=== PATIENT | male | born 1995 | race Caucasian/White ===

== ENCOUNTER 2020-12-08 15:39 | Emergency (ER) | payer OTHER, SELFPAY ==
[2020-12-08 15:52] VITALS: BP 139/78; PULSE 87; RESP 17; TEMP 36.2; O2SAT 100
--- NOTE | 2020-12-08 16:12 | ED.GENADULT ---
HPI - General Adult General Chief complaint: Wound/Laceration Stated complaint: Laceration to forehead Time Seen by Provider: 12/08/20 16:12 Source: patient and RN notes reviewed Mode of arrival: ambulatory Limitations: no limitations History of Present Illness HPI narrative: 25-year-old male presents with complaints of laceration to the face caused by a wooden board hitting face 1 hour prior to arrival. Rafy reports unscrewing one side of a deck board when the other side came down on him causing laceration to face. ?Pressure dressing applied to control bleeding. ?No loss of consciousness, blurred vision, double vision, dizziness, or seizure activity. ?Denies vertigo or immobility. Denies nausea or vomiting. Tolerating po intake well. ?Denies pain, numbness or tingling, or weakness of upper or lower extremities. ?No foreign body sensation. Tetanus 5 years ago, per Rafy. ?Remains active. The patient reports he has not been diagnosed with COVID-19. The patient reports he is not waiting for the results of a COVID-19 lab test. ?The patient reports he does not have fever, chills, weakness, or fatigue. ?The patient reports he does not have a new or worsening cough or shortness of breath. ?Denies chest pain. ?The patient reports he does not have any rhinorrhea, congestion, loss of taste or smell, sore throat, abdominal pain, and diarrhea. Denies recent traveling. ?Denies concerns for COVID-19 or exposures. ?At this time, the patient is not suspected of having COVID-19. Some parts of this dictation were generated by voice recognition software and may contain typographical and/or grammatical inaccuracies Related Data Home Medications Medication Instructions Recorded Confirmed No Home Medications 12/08/20 12/08/20 Allergies Allergy/AdvReac Type Severity Reaction Status Date / Time No Known Drug Allergies Allergy Unknown Verified 12/08/20 16:09 Review of Systems Review of Systems: Narrative: CONSTITUTIONAL: Denies fever, chills, sweats. EYES: Denies visual changes, redness, discharge. ENT: Denies rhinorrhea, congestion, sore throat, otalgia. CARDIOVASCULAR: Denies chest pain, palpitations, edema. RESPIRATORY: Denies dyspnea, wheezing, cough. GASTROINTESTINAL: Denies abdominal pain, nausea, vomiting, diarrhea. SKIN: Denies rash or itching. Complaints of laceration to face. MUSCULOSKELETAL: Denies acute back pain, joint pain, or myalgia. NEUROLOGIC: Denies numbness or focal weakness. PSYCHIATRIC: Denies anxiety or depression. All other systems reviewed are negative, except as documented in HPI and below. [facility] Past Medical History Medical History Alcohol use disorder Hx of kidney disease Male circumcision Methamphetamine abuse Smoker Surgical History Surgical History (Updated 12/08/20 @ 17:23 by LILIYA Armando) No significant past surgical history Family History Family History (Updated 12/08/20 @ 17:24 by LILIYA Armando) Father , Related to a DUI incident Unknown family medical history Mother Unknown family medical history Social History Social History (Updated 12/08/20 @ 17:25 by LILIYA Armando) Smoking packs per day: 1.5 Smoking cigarettes per day: 30.0 Smoking status: Current every day smoker Tobacco type: cigarettes Second hand tobacco smoke exposure: No Alcohol intake: current Substance use: former Substance use type: crack/cocaine and methamphetamine Living arrangements: with family Occupation/Education: occupation Gender identity (if verbalized by the patient): Male Sexual Orientation (if Verbalized by the Patient): Straight or Heterosexual Comments At time of signature, agree with the nurse past medical, surgical, social, and family history. There is no relevant family history pertinent to the presenting complaint. Exam Narrative: Exam Narrative: GENERAL: This is a well-nourished, well-developed patient, in no apparent distress. T
== END 2020-12-08 17:19 | disposition home or self-care (01) ==
PROVIDERS: Emergency Provider Nurse Practitioner Family
DX: S01.81XA Laceration without foreign body of other part of head, initial encounter (principal); W22.8XXA Striking against or struck by other objects, initial encounter; F17.210 Nicotine dependence, cigarettes, uncomplicated
CPT/HCPCS: 12011; 99212; G0463

== ENCOUNTER 2024-02-02 22:30 | Emergency (ER) | payer OTHER, MEDICAID, SELFPAY ==
--- NOTE | ~2024-02-02 | XR_ITS ---
Clinical Indication: Chest pain PA and lateral views of the chest: Comparison: 01/24/2014 Findings: The lungs are clear, without evidence of focal consolidation or pleural effusion. Cardiome diastinal silhouette is within normal limits. Bones and soft tissues are unremarkable. Impression: Normal chest. Reviewed, dictated and finalized at location . Impression: Normal chest.
--- NOTE | 2024-02-02 22:42 | ED.URI ---
HPI - URI/Sore Throat General Chief Complaint: Upper Respiratory Infection Stated Complaint: stuffy nose, sore throat, body aches Time Seen by Provider: 02/02/24 22:42 Source: patient Mode of arrival: ambulatory Limitations: no limitations History of Present Illness HPI Narrative: Rafy is a 28-year-old male patient presenting to the emergency room today with complaints of nasal congestion, sore throat, body aches, chest discomfort with breathing and shortness of breath. Reports his chest hurts on the left side. Symptoms have been going on for 3-4 days.He denies any known fever or chills. Has had exposure to his girlfriend who had mono 1 week ago. MD elicited complaint: sore throat and nasal congestion Related Data Allergies Allergy/AdvReac Type Severity Reaction Status Date / Time No Known Allergies Allergy Verified 02/02/24 22:48 Review of Systems Review of Systems: Pertinent positives per HPI. Patient denies any rash, headache, visual changes, dizziness, palpitations, nausea, vomiting, diarrhea, constipation, abdominal pain, or any urinary issues. PMFSH Past Medical History Medical History Alcohol use disorder Hx of kidney disease Male circumcision Methamphetamine abuse Smoker Surgical History Surgical History No significant past surgical history Family History Family History Father , Related to a DUI incident Unknown family medical history Mother Unknown family medical history Social History Social History Smoking packs per day: 1.5 Smoking cigarettes per day: 30.0 Smoking status: Current every day smoker Tobacco type: cigarettes Second hand tobacco smoke exposure: No Alcohol intake: current Substance use: former Substance use type: crack/cocaine and methamphetamine Living arrangements: with family Occupation/Education: occupation Gender identity (if verbalized by the patient): Male Sexual Orientation (if Verbalized by the Patient): Straight or Heterosexual Comments At the time of my signature, I reviewed and agree with the nursing past medical, surgical, social, and family history. There is no relevant family history pertinent to the patient complaint. Exam Narrative: General: Well-developed, well nourished, in no apparent distress Head: Normocephalic, atraumatic Eyes: Pupils equally round and reactive to light bilaterally, EOM intact, sclera and conjunctive clear, no discharge, lids normal Ears: TMs intact and congested, ear canals clear, no drainage, grossly hearing normal. Nose: Nares patent, clear nasal discharge, no inflammation, no sinus tenderness. Mouth: Oral pharynx red without lesions or masses, good dentition, MMM. Neck: Supple, trachea midline, no enlargement of anterior or posterior cervical nodes, no thyroid masses or goiter palpable. Cardio: Regular rate and rhythm, s1 and s2 normal, no murmur appreciated. Resp: Faint rhonchi heard over the left lower lobe, no rales, wheezing or rubs Course Course Emergency Course: Portions of this record may have been created with voice recognition software. Vital Signs Vital signs: Vital signs reviewed MDM - URI/Sore Throat MDM Narrative Medical decision making narrative: At the time of visit patient is resting comfortably on the exam table. Patient appears to be nontoxic. EKG: EKG shows sinus rhythm with heart rate of 97 beats per minute. No ST elevation, depression, or T-wave inversions noted Labs: COVID, influenza, RSV, and strep test were all negative. Cbc shows white blood cell count of 16.9, hemoglobin of 15.2 and hematocrit 45.3, platelet counts 239, left side shift, chemistry shows sodium 136, potassium of 4.0, chloride 96, carbon dioxide of 31, BUN of 15, creatinine 0.9, GFR is greater than 60, AST i
[2024-02-02 22:44] VITALS: BP 136/85; PULSE 108; RESP 18; TEMP 37; O2SAT 100
[2024-02-02 23:22] VITALS: O2SAT 100
[2024-02-02 23:26] LABS: Strep Group A RT-PCR NOT DETECTED (Negative)
[2024-02-02 23:38] LABS: Influenza A QL RT-PCR Negative (Negative); Influenza B QL RT-PCR Negative (Negative); RSV RNA, RT-PCR Negative (Negative); SARS-CoV-2 RNA PCR Negative (Negative)
--- NOTE | 2024-02-02 23:42 | ECG_ITS ---
Test Date: 2024-02-02 23:52:50 Measurements Intervals [place] Rate: 97 P: 63 NM: 158 QRS: 62 QRSD: 89 T: 58 QT: 329 QTc: 419 Interpretive Statements SINUS RHYTHM MINIMAL Q WAVES- INF/LAT LEADS BASELINE ARTIFACT- I, II, AVR, V4-V6 BORDERLINE ECG No previous ECG available for comparison Electronically Signed On 02-03-2024 06:10:33 CDT by Yobany Fairchild D.O.
[2024-02-03 00:17] LABS: Basophils Absolute Auto 0.1 K/mm3 (0.0-0.1); Basophils Percent Auto 0.4 % (0.2-1.2); Eosinophils Absolute Auto 0.1 K/mm3 (0-0.3); Eosinophils Percent Auto 0.3 % (0-4.4); Hematocrit 45.3 % (42.0-52.0); Hemoglobin 15.2 g/dL (14.0-18.0); Immature Granulocyte Absolute 0.08 K/mm3 (0.00-0.031); Immature Granulocyte Percent A 0.5 % (0-0.5); Lymphocytes Absolute Auto 1.72 K/mm3 (0.9-3.2); Lymphocytes Percent Auto 10.2 % (18.3-44.2); Mean Corpuscular HGB Conc 33.6 g/dl (32-36); Mean Corpuscular Hemoglobin 29.6 pg (26-34); Mean Corpuscular Volume 88.3 fl (80-100); Mean Platelet Volume 10.8 fl (7.4-10.4); Monocytes Absolute Auto 1.2 K/mm3 (0.1-0.6); Neutrophils Absolute Auto 13.8 K/mm3 (1.3-6.7); Neutrophils Percent Auto 81.6 % (45.5-73.1); Platelet Count Result 239 k/mm3 (150-375); Red Blood Count 5.13 M/mm3 (4.6-6.20); Red Cell Distribution Width 12.7 % (11.5-14.5); White Blood Count 16.9 K/mm3 (4.5-10.0)
[2024-02-03 00:45] LABS: Monoscreen Negative (Negative); Negative Monotest Control Negative (Negative); Positive Monotest Control Positive (Positive)
[2024-02-03 00:48] LABS: Alanine Aminotransferase 102 U/L (6-50); Albumin Level 4.6 g/dL (3.5-5.1); Alkaline Phosphatase 59 U/L (38-126); Anion Gap 9 mmol/L (4-12); Aspartate Amino Transferase 45 U/L (17-59); Bilirubin,Total 0.8 mg/dL (0.2-1.3); Blood Urea Nitrogen 15 mg/dL (9-20); Calcium 9.4 mg/dL (8.4-10.2); Carbon Dioxide 31 mmol/L (22-30); Chloride 96 mmol/L (98-107); Estimated CRCL calculation 101 ml/min; Estimated Glomerular Filt Rate > 60; Glucose 95 mg/dL (65-110); Sodium 136 mmol/L (137-145)
[2024-02-03 00:52] LABS: Troponin I < 0.012 ng/mL (0.000-0.034)
[2024-02-03 01:30] VITALS: BP 130/85; PULSE 99; RESP 18; O2SAT 98
== END 2024-02-03 01:33 | disposition home or self-care (01) ==
PROVIDERS: Emergency Provider Nurse Practitioner Family
DX: J40 Bronchitis, not specified as acute or chronic (principal); F17.210 Nicotine dependence, cigarettes, uncomplicated; Z87.442 Personal history of urinary calculi
CPT/HCPCS: 36415; 71046; 80053; 84484; 85025; 86308; 87637; 87651; 93005; 99283

== ENCOUNTER 2024-12-28 14:19 | Emergency (ER) | payer MEDICAID, SELFPAY ==
--- NOTE | ~2024-12-28 | XR_ITS ---
HISTORY: laceration COMPARISON: None TECHNIQUE: 4 views of the left knee were performed FINDINGS: No acute or subacute fracture. Subcutaneous air is identified along the undersurface of the quadriceps tendon, as well as within the tibiofemoral joint space consistent with patient's history. Trace medial and lateral tibiofemoral joint space narrowing is identified. No suprapatellar joint effusion is identified. The infrapatellar joint space is clear. IMPRESSION: No acute fracture, with subcutaneous air within the joint space consistent with patient' s history. Reviewed, dictated and finalized at location A. IMPRESSION: No acute fracture, with subcutaneous air within the joint space co nsistent with patient's history.
[2024-12-28 14:52] VITALS: BP 135/52; PULSE 107; RESP 16; TEMP 36.8; O2SAT 99
--- NOTE | 2024-12-28 14:57 | ED.WOUNDLAC ---
HPI - Wound/Laceration General Chief Complaint: Wound/Laceration <Marcela Healy PA-C - Last Filed: 12/28/24 15:00> Stated Complaint: blade to knee cap <Marcela Healy PA-C - Last Filed: 12/28/24 15:00> Time Seen by Provider: 12/28/24 18:26 <Marcela Healy PA-C - Last Filed: 12/28/24 15:00> Focused HPI: 29-year-old male presents emergency department for a laceration to his left knee that occurred prior to arrival. Patient states he accidentally cut his left knee just above his kneecap with a sawzall blade. States he felt dull blade extend beneath his knee cap. He states the clean the area with hydrogen peroxide prior to arrival. States his last Tdap was within the past 5 years. Bleeding controlled. He is not anticoagulated. GENERAL: Well-appearing, well-nourished, and in no acute distress. HEAD: Normocephalic, atraumatic. CHEST: Clear to auscultation. ?No respiratory distress. EXT: 1 cm laceration superior to the left patella with no active bleeding. There is an effusion to the left knee. Full active range of motion of the knee. DP pulse is 2+. Sensation intact HEART: Regular rate and rhythm.? NEURO: ?Alert and oriented x3. Patient screened in triage and initial orders placed.? ?Additional care and disposition to be based upon?diagnostic testing and treatment. <Marcela eHaly PA-C - Last Filed: 12/28/24 15:00> Focused HPI: 29-year-old male presents emergency department for a laceration to his left knee that occurred prior to arrival. Patient states he accidentally cut his left knee just above his kneecap with a sawzall blade. States he felt dull blade extend beneath his knee cap. He states he cleaned the area with hydrogen peroxide prior to arrival. States his last Tdap was within the past 5 years. Bleeding controlled. He is not anticoagulated. GENERAL: Well-appearing, well-nourished, and in no acute distress. HEAD: Normocephalic, atraumatic. CHEST: Clear to auscultation. ?No respiratory distress. EXT: 1 cm laceration superior to the left patella with no active bleeding. There is an effusion to the left knee. Full active range of motion of the knee. DP pulse is 2+. Sensation intact HEART: Regular rate and rhythm.? NEURO: ?Alert and oriented x3. Patient screened in triage and initial orders placed.? ?Additional care and disposition to be based upon?diagnostic testing and treatment. <Shikha Stubbs PA-C - Last Filed: 12/28/24 20:30> Related Data Allergies/Adverse Reactions: Allergies Allergy/AdvReac Type Severity Reaction Status Date / Time No Known Allergies Allergy Verified 02/02/24 22:48 <Marcela Healy PA-C - Last Filed: 12/28/24 15:00> Review of Systems Review of Systems: All systems reviewed & are unremarkable except as noted in HPI and below <Shikha Stubbs PA-C - Last Filed: 12/28/24 20:30> [facility] Past Medical History Medical History: Medical History Alcohol use disorder Hx of kidney disease Male circumcision Methamphetamine abuse Smoker <Marcela Healy PA-C - Last Filed: 12/28/24 15:00> Surgical History Surgical History: Surgical History No significant past surgical history <PETE Rea Last Filed: 12/28/24 15:00> Family History Family History: Family History Father , Related to a DUI incident Unknown family medical history Mother Unknown family medical history <Marcela Healy PA-C - Last Filed: 12/28/24 15:00> Social History Social History: Social History Smoking packs per day: 1.5 Smoking cigarettes per day: 30.0 Smoking status: Current every day smoker Tobacco type: cigarettes Second hand tobacco smoke exposure: No Alcohol intake: current Substance use: former Substance use type: crack/cocaine and methamphetamine Living arrangements: with family Occupation/Education: occupation Gender identity (if verbalized by the patient): Male Sexual Orientation (if Verbalized by the Patient): Straight or Heterosexual <PETE Rea Last Filed: 12/28/24 15:00> Exam Narrative: GENERAL: Well-appearing, well-nourished, and in no acute distress. HEAD: Normocephalic, atraumatic. EYES: EOMI. EXTREMITIES: No edema. 1.5cm linear laceration horizontally above the left patella in the area of the quadriceps tendon. Unable to flex at the left knee or perform straight leg raise SKIN: Warm, dry, no rash. NEURO: No focal deficits. Alert and oriented x3. PSYCH: Normal mood and affect <PETE Doan Last Filed: 12/28/24 20:30> Course Consultations Consultation #1: Patient is accepted as transfer to [facility] ER for trauma by Dr. Huddleston <PETE Doan Last Filed: 12/28/24 20:30> Date: 12/28/24 <PETE Doan Last Filed: 12/28/24 20:30> Vital Signs Vital signs: Vital Signs Temperature 98.2 F 12/28/24 14:52 Pulse Rate 107 H 12/28/24 14:52 Respiratory Rate 16 12/28/24 14:52 Blood Pressure 135/52 L 12/28/24 14:52 Pulse Oximetry 99 12/28/24 14:52 Oxygen Delivery Room Air 12/28/24 14:52 Temperature 98.6 F 12/28/24 20:14 Pulse Rate 99 12/28/24 20:14 Respiratory Rate 14 12/28/24 20:14 Blood Pressure 144/88 H 12/28/24 20:14 Pulse Oximetry 100 12/28/24 20:14 Oxygen Delivery Room Air 12/28/24 18:51 <PETE Rea Last Filed: 12/28/24 15:00> Vital Signs Temperature 98.2 F 12/28/24 14:52 Pulse Rate 107 H 12/28/24 14:52 Respiratory Rate 16 12/28/24 14:52 Blood Pressure 135/52 L 12/28/24 14:52 Pulse Oximetry 99 12/28/24 14:52 Oxygen Delivery Room Air 12/28/24 14:52 Temperature 98.6 F 12/28/24 20:14 Pulse Rate 99 12/28/24 20:14 Respiratory Rate 14 12/28/24 20:14 Blood Pressure 144/88 H 12/28/24 20:14 Pulse Oximetry 100 12/28/24 20:14 Oxygen Delivery Room Air 12/28/24 18:51 <Shikha Stubbs PA-C - Last Filed: 12/28/24 20:30> MDM - Wound/Laceration MDM Narrative Medical decision making narrative: Patient presents the emergency department after an injury sustained via sawzall. Patient with laceration above the patellar tendon on the left. He is unable to raise his leg or bend his knee. X-ray is showing subcutaneous air within the joint space. Will be transferred to [facility] as a trauma for further care. He is up-to-date on tetanus vaccination. Given a dose of Ancef in the ER here <Shikha Stubbs PA-C - Last Filed: 12/28/24 20:30> Differential Diagnosis Differential diagnosis: Likely laceration and other (Tendon laceration) <PETE Doan Last Filed: 12/28/24 20:30> Imaging Data Radiologist's impression: ITS Impressions Knee X-Ray 12/28/24 15:30 IMPRESSION: No acute fracture, with subcutaneous air within the joint space consistent with patient's history. <PETE Doan Last Filed: 12/28/24 20:30> Critical Care Time Critical Care Time Critical Care Time: No <PETE Doan Last Filed: 12/28/24 20:30> Discharge Plan Discharge Clinical Impression: Laceration of knee Qualifiers: Encounter type: initial encounter Laterality: left Qualified Code(s): S81.012A - Laceration without foreign body, left knee, initial encounter <PETE Rea Last Filed: 12/28/24 15:00> Patient Disposition: Acute Care Hospital <PETE Rea Last Filed: 12/28/24 15:00> Condition: Stable <PETE Rea Last Filed: 12/28/24 15:00> Additional Instructions: You were given a dose of Ancef in our ER. Drive straight to [facility] ER for further management, do not eat or drink [address] [facility] <Marcela Healy PA-C - Last Filed: 12/28/24 15:00> Patient Language: Amharic <Marcela Healy PA-C - Last Filed: 12/28/24 15:00> Prescriptions: No Action azithromycin 250 mg tablet See Rx Instructions .ROUTE .COMPLEX Qty: 6 0RF Rx Instructions: For 250 mg dose pack: take 500 mg today (day 1), then 250 mg for 4 days (days 2-5) prednisone 20 mg tablet 40 mg PO DAILY 5 Days Qty: 10 0RF albuterol sulfate 90 mcg/actuation HFA aerosol inhaler 2 puff inhalation Q4-6H PRN (Reason: shortness of breath or wheezing) 30 Days Qty: 8.5 0RF <Marcela Healy PA-C - Last Filed: 12/28/24 15:00> Follow-up/Referrals: PHYSICIAN,HAND STONECUTTER [Primary Care Provider] - <Marcela Healy PA-C - Last Filed: 12/28/24 15:00>
[2024-12-28 17:49] VITALS: BP 124/71; PULSE 90; RESP 20; TEMP 36.7; O2SAT 100
[2024-12-28 18:51] VITALS: BP 135/91; PULSE 83; RESP 14; TEMP 37.1; O2SAT 100
[2024-12-28] MEDS: HYDROcodone/acetaminophen (*CRX) 5-325 MG TABLET 1 TAB PO (19:33)
[2024-12-28] MEDS: ceFAZolin SODIUM 1 GM VIAL IM (19:33)
[2024-12-28 19:59] VITALS: BP 144/88; PULSE 99; RESP 14; TEMP 37; O2SAT 100
--- NOTE | 2024-12-28 20:11 | PC.NURSE ---
report called to ludy funk at [facility].
[2024-12-28 20:14] VITALS: BP 144/88; PULSE 99; RESP 14; TEMP 37; O2SAT 100
== END 2024-12-28 20:52 | disposition short-term general hospital (02) ==
PROVIDERS: Emergency Provider Physician Assistant
DX: S81.012A Laceration without foreign body, left knee, initial encounter (principal); W27.0XXA Contact with workbench tool, initial encounter; F17.210 Nicotine dependence, cigarettes, uncomplicated
CPT/HCPCS: 73564; 96372; 99283; A9270; J0690